=== PATIENT | female | born 1995 | race Hispanic/Latino ===

== ENCOUNTER 2019-09-08 16:42 | Emergency (ER) | payer OTHER ==
[2019-09-08] MEDS ORDERED: ACETAMINOPHEN 325 MG TAB ONE (17:28)
[2019-09-08 17:38] LABS: APPEARANCE,URINE Cloudy (CLEAR); BILIRUBIN,URINE Negative (NEGATIVE); COLOR,URINE Yellow (YELLOW); GLUCOSE, URINE (UA) Negative (NEGATIVE); KETONES,URINE Negative (NEGATIVE); LEUKOCYTE ESTERASE ,URINE Moderate (NEGATIVE); NITRATE,URINE Negative (NEGATIVE); OCCULT BLOOD,URINE Moderate (NEGATIVE); PH,URINE 5.5 (5.0-8.0); PROTEIN,URINE Trace mg/dL (NEGATIVE); UROBILINOGEN,URINE 0.2 mg/dL (0.2-1.0)
[2019-09-08 17:52] LABS: BACTERIA,URINE Few /HPF (None Seen); RBC,URINE None Seen /HPF (0-1)
[2019-09-08 17:54] LABS: RAPID GROUP A STREP NEGATIVE (NEGATIVE)
[2019-09-08 18:03] LABS: HCG,QUAL RESULT NEGATIVE (NEGATIVE)
== END 2019-09-08 18:25 | disposition home or self-care (01) ==
LOC: EDH 16:42
DX: J10.1 Influenza due to other identified influenza virus with other respiratory manifestations (principal); N30.00 Acute cystitis without hematuria; Z88.0 Allergy status to penicillin
CPT/HCPCS: 81001; 81025; 87088; 87804; 87880

== ENCOUNTER 2019-09-12 20:37 | Emergency (ER) | payer OTHER ==
[2019-09-12] MEDS ORDERED: BENZONATATE 100 MG CAPSULE PO ONE (20:51)
[2019-09-12] MEDS ORDERED: KETOROLAC TROMETHAMINE 30MG/ML ONE (20:51)
[2019-09-12 21:10] LABS: BASOPHILS % (AUTO) 0.3 % (0.0-5.0); EOSINOPHILS % (AUTO) 1.8 % (0.0-8.0); HEMATOCRIT 45.6 % (36-48); LYMPHOCYTES % (AUTO) 32.9 % (21.0-51.0); MEAN CORPUSCULAR HEMOGLOBIN 22.2 pg (27.0-33.0); MEAN CORPUSCULAR HGB CONC 30.3 g/dL (32.0-36.0); MEAN CORPUSCULAR VOLUME 73.2 fL (79-99); NEUTROPHILS % (AUTO) 58.7 % (40.0-77.0); PLATELET COUNT (AUTO) 231 K/uL (130-400); RED BLOOD CELL COUNT(AUTO) 6.23 MIL/uL (4.00-5.50); WHITE BLOOD COUNT (AUTO) 6.1 K/uL (4.8-10.8)
[2019-09-12 21:17] LABS: CREATININE 0.7 mg/dL (0.5-1.5); POTASSIUM 3.8 mmol/L (3.5-5.1)
== END 2019-09-12 22:32 | disposition home or self-care (01) ==
LOC: EDH 20:37
DX: R07.89 Other chest pain (principal); J20.9 Acute bronchitis, unspecified; R21 Rash and other nonspecific skin eruption; J10.1 Influenza due to other identified influenza virus with other respiratory manifestations; M94.0 Chondrocostal junction syndrome [Tietze]; Z88.0 Allergy status to penicillin
CPT/HCPCS: 36415; 71045; 80048; 83880; 84484; 84702; 85025; 93005; 96372; 99285; J1885